=== PATIENT | female | born 2000 | race Caucasian/White ===

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

== ENCOUNTER 2024-08-17 15:00 | Inpatient (IN) ==
[2024-08-17 16:38] LABS: ABS Monocytes 0.5 10^3/uL (0.0-0.9); ABS Neutrophils 4.4 10^3/uL (1.5-7.6); Eosinophil % 0.4 %; Hematocrit 42.2 % (35-45); Hemoglobin 14.4 g/dL (11.5-14.3); Lymphocyte % 28.8 %; Mean Corpuscular Hemoglobin 29.4 pg (27-33); Mean Corpuscular Hgb Conc 34.1 g/dL (31-36); Mean Corpuscular Volume 86.3 fL (80-97); Mean Platelet Volume 8.4 fL (7.5-11.2); Platelet Count 228 10^3/uL (150-450); Red Blood Count 4.89 10^6/uL (3.63-4.92); Red Cell Distribution Width 13.1 % (12-17)
[2024-08-17 16:52] LABS: Urine Appearance Clear; Urine Bilirubin Negative (Negative); Urine Blood 3+ (Negative); Urine Color Yellow; Urine Glucose Negative (Negative); Urine Ketones 3+ (Negative); Urine Nitrite Negative (Negative); Urine Protein Trace (Negative); Urine Specific Gravity 1.026 (1.002-1.030); Urine Urobilinogen 1+ (Negative)
[2024-08-17 17:06] LABS: Urine Bacteria 2+ /HPF (Absent); Urine Red Blood Cell 3+(>10/hpf) /HPF (0-Trace); Urine Squamous Epithelial Cell Present /HPF (Absent); Urine White Blood Cell Trace(0-5/hpf) /HPF (0-Trace)
[2024-08-17 17:09] LABS: ALT 8 U/L (7-52); AST 14 U/L (13-39); Albumin 4.8 g/dL (3.2-5.2); Albumin/Globulin Ratio 1.8 (1-3); Alkaline Phosphatase 58 U/L (35-149); Anion Gap 10 mmol/L (2-16); Blood Urea Nitrogen 10 mg/dL (6-24); CO2 Carbon Dioxide 24 mmol/L (22-32); Calcium 9.9 mg/dL (8.6-10.3); Chloride 103 mmol/L (101-111); Creatinine, Serum 0.77 mg/dL (0.51-0.95); Globulin 2.7 g/dL (2-4); Glucose 137 mg/dL (70-100); Potassium 4.1 mmol/L (3.5-5.0); Sodium 137 mmol/L (135-145); Total Bilirubin 1.2 mg/dL (0.2-1.0); Total Protein 7.5 g/dL (6.4-8.9); Urine Benzodiazepine Screen None Detected (None Detect); Urine Cannabinoids Screen None Detected (None Detect); Urine Opiates Screen None Detected (None Detect); eGFR CKD-EPI 111.1 (>60)
[2024-08-17 17:13] LABS: Acetaminophen < 15 mcg/mL; Alcohol, S < 13 mg/dL (<13); Salicylate < 2.50 mg/dL (<30)
[2024-08-17 17:16] LABS: HCG Pregnancy < 0.60 mIU/mL
[2024-08-17 17:25] LABS: TSH Ultra Thyroid Stim Horm 0.68 mcIU/mL (0.34-5.60)
[2024-08-17] MEDS ORDERED: Al Hydrox/Mg Hydrox/Simet LIQ 30 ML UDC PO PRN (23:25)
[2024-08-18 08:12] LABS: HDL Cholesterol 37.1 mg/dL
[2024-08-18] MEDS: Vitamin THERAPEUTIC TAB PO SCH (09:59)
[2024-08-26 11:07] VITALS: BP 107/75
== END 2024-08-26 14:33 | disposition home or self-care (01) | DRG 751 ==
LOC: ED 15:00 → EDHOLD 23:25 → BSU 23:44
PROVIDERS: ADMIT Psychiatry & Neurology Psychiatry; ATTEND Psychiatry & Neurology Psychiatry